=== PATIENT | female | born 1955 | race Caucasian/White ===

== ENCOUNTER 2017-09-12 21:30 | Emergency (ER) | payer MEDICAID ==
[~2017-09-12] VITALS: Ht 172.7 cm; Wt 79.8 kg
[2017-09-12 22:00] VITALS: BP 141/89
[2017-09-13] MEDS ORDERED: IBUPROFEN 600 MG TAB PO ONE (00:15)
== END 2017-09-13 00:16 | disposition home or self-care (01) ==
LOC: ER 21:30
DX: S39.012A Strain of muscle, fascia and tendon of lower back, initial encounter (principal); S80.01XA Contusion of right knee, initial encounter; S00.93XA Contusion of unspecified part of head, initial encounter; W18.39XA Other fall on same level, initial encounter; Y93.89 Activity, other specified; Y92.89 Other specified places as the place of occurrence of the external cause; Y99.8 Other external cause status
CPT/HCPCS: 70450; 72131; 73562